=== PATIENT | male | born 1970 | race Caucasian/White ===

== ENCOUNTER 2018-03-29 11:39 | Emergency (ER) | payer OTHER ==
--- NOTE | 2018-03-29 11:47 | EDPHY ---
H & P Stated Complaint: 3 weeks palpitations/chest pressure/sob Time Seen by Provider: 03/29/18 11:45 - Personal History Current Tetanus Diphtheria and Acellular Pertussis (TDAP): Unsure - Medical/Surgical History Hx Asthma: No Hx Chronic Respiratory Disease: No Hx Diabetes: No Hx Cardiac Disease: No Hx Renal Disease: No Hx Cirrhosis: No Hx Alcoholism: No Hx HIV/AIDS: No Hx Splenectomy or Spleen Trauma: No Other PMH: denies - Social History Smoking Status: Former smoker Constitutional: Initial Vital Signs Temperature (C) 36.7 C 03/29/18 11:40 Heart Rate 78 03/29/18 11:40 Respiratory Rate 18 03/29/18 11:40 Blood Pressure 121/79 H 03/29/18 11:40 O2 Sat (%) 94 03/29/18 11:40 O2 Delivery Mode Room Air Allergies/Adverse Reactions: No Known Allergies Allergy (Unverified 03/29/18 11:40) Home Medications: Medication Instructions Recorded Albuterol [Proventil Inhaler] 1 - 2 puffs IH Q4 #1 mdi 03/29/18 methylPREDNISolone [Medrol Dose 1 each PO AD #1 ea 03/29/18 Chris] Medical Decision Making - Diagnostics Imaging Results: Imaging Impressions Chest X-Ray 03/29/18 12:00 Impression: Normal. Imaging: I viewed and interpreted images myself ED Course/Re-evaluation: CHIEF COMPLAINT: Heart palpitations, chest pressure, shortness of breath HISTORY OF PRESENT ILLNESS: The patient is a 47 y/o male complaining of worsening, intermittent heart palpitations, chest pressure, and shortness of breath for the past 9 months. Several months into developing the pain he stopped smoking and noticed that the symptoms worsened. He tends to have a shortness of breath episode every 2 weeks , which is exacerbate while exerting himself. Last , 4 days ago, he arrived in [place] from [place]. However, the symptoms only mildly worsened since arriving. He is currently feeling short of breath and believes his heart is pounding and has an irregular beat. The chest pressure and shortness of breath do not always happen at the same time. Denies history of cardiac or pulmonary tests. Denies recent long distance travel abroad. Denies nausea, vomiting, jaw pain, arm pain, abdominal pain, urinary or bowel complaints, fever , numbness, paresthesias. REVIEW OF SYSTEMS: A 10 point review of systems was performed and is negative with the exception of the elements mentioned in the history of present illness. PHYSICAL EXAM: HR, BP, O2 Sat, RR. Temp noted General Appearance: Alert, well hydrated, appropriate, and non-toxic appearing. Head: Atraumatic without scalp tenderness or obvious injury Eyes: Pupils equal, round, reactive to light and accommodation, EOMI, no trauma , no injection. Ears: Clear bilaterally, no perforation, normal landmarks Nose: Atraumatic, no rhinorrhea, clear. Throat: There is no erythema or exudates, no lesions, normal tonsils, mucus membranes moist. Neck: Supple, nontender, no lymphadenopathy. Respiratory: No retractions, no distress, no wheezes, and no accessory muscle use. Lungs are clear to auscultation bilaterally. Cardiovascular: Regular rate and rhythm, no murmurs, rubs, or gallops. Bilateral carotid, radial, dorsalis pedis, and posterior tibial pulses intact. Good capillary refill all extremities. Gastrointestinal: Abdomen is soft, nontender, non-distended, no masses, no rebound, no guarding, no peritoneal signs. Musculoskeletal: Normal active ROM of all extremities, atraumatic. Neurological: Alert, appropriate, and interactive. Non-focal neuro. Skin: No rashes, good turgor, no nodules on palpation. Past medical history: Denies Past surgical history: Denies Family history: Denies Social history: Friend at bedside, lives in [place], employed, recently stopped smoking DIAGNOSTICS/PROCEDURES/CRITICAL CARE TIME: EKG: The 12 lead EKG was interpreted by myself as sinus rhythm with rate of 67. Potential ST depression in inferior lateral leads. See hard copy and/or "tracemaster" electronic copy for interpretation. Chest x-ray: Normal Cardia Stress Test: Normal DIFFERENTIAL DIAGNOSIS: The differential diagnosis for the patient's chest pain included but was not limited to bronchospasms, bronchitis, pneumonia, myocardial ischemia, pulmonary embolus, chest wall pain, pleural inflammation, and pulmonary infectious causes. MEDICAL DECISION MAKING: The patient is a 47 y/o male complaining of worsening, intermittent heart palpitations, chest pressure, and shortness of breath for the past 9 months. Over the last several days these symptoms have worsened. His physical exam, including cardiac and lungs, is normal. Labs, EKG, and chest x-ray ordered; 324mg PO Aspirin and DuoNeb administered. 1147: I interpreted EKG as sinus rhythm with rate of 67; there is a potential ST depression. 1242: Patient's chest x-ray is normal and his labs are unremarkable. 1243: Reassessed patient and discussed laboratory and imaging findings. He is feeling mildly better after the DuoNeb, but is coughing up black/yellow sputum. I will call cardiology to try and have the patient scheduled for a cardiac stress test. 1252: Consulted with Dr. Prabhakar's bookmobile librarian PA; patient will have a treadmill cardiac stress test in the emergency department. 1254: Reassessed patient and discussed cardiac stress test, he is comfortable with this plan. 1417: Consulted with [facility], who reports the patient went 8 minutes on the treadmill per the Gen protocol without complications. 1418: Reassessed patient and discussed cardiac stress test findings. I have prescribed him a Medrol Dose Chris and an albuterol inhaler for his bronchospasms. I have also advised him to follow up with his PCP when he returns home to [place]. Return precautions provided; patient is comfortable with this plan. - Data Points Laboratory Results: Laboratory Results 03/29/18 11:50 03/29/18 11:50 03/29/18 03/29/18 03/29/18 12:37 12:06 11:50 WBC RBC Hgb Hct MCV MCH MCHC RDW Plt Count MPV Neut % (Auto) Lymph % (Auto) [place] % (Auto) Eos % (Auto) Baso % (Auto) Nucleat RBC Rel Count Absolute Neuts (auto) Absolute Lymphs (auto) Absolute Monos (auto) Absolute Eos (auto) Absolute Basos (auto) Absolute Nucleated RBC Immature Gran % Immature Gran # D-Dimer < 0.27 ug/mLFEU ug/mLFEU (0.00-0.50) Sodium Potassium Chloride Carbon Dioxide Anion Gap BUN Creatinine Estimated GFR Glucose Calcium Magnesium POC Troponin I 0.00 ng/mL ng/mL 0.00 ng/mL ng/mL (0.00-0.08) (0.00-0.08) NT-Pro-B Natriuret Pep 03/29/18 03/29/18 11:50 11:50 WBC 5.59 10^3/uL 10^3/uL (3.80-9.50) RBC 5.16 10^6/uL 10^6/uL (4.40-6.38) Hgb 15.0 g/dL g/dL (13.7-17.5) Hct 43.6 % % (40.0-51.0) MCV 84.5 fL fL (81.5-99.8) MCH 29.1 pg pg (27.9-34.1) MCHC 34.4 g/dL g/dL (32.4-36.7) RDW 11.9 % % (11.5-15.2) Plt Count 262 10^3/uL 10^3/uL (150-400) MPV 8.4 fL L fL (8.7-11.7) Neut % (Auto) 57.0 % % (39.3-74.2) Lymph % (Auto) 32.2 % % (15.0-45.0) [place] % (Auto) 8.9 % % (4.5-13.0) Eos % (Auto) 1.3 % % (0.6-7.6) Baso % (Auto) 0.2 % L % (0.3-1.7) Nucleat RBC Rel Count 0.0 % % (0.0-0.2) Absolute Neuts (auto) 3.19 10^3/uL 10^3/uL (1.70-6.50) Absolute Lymphs (auto) 1.80 10^3/uL 10^3/uL (1.00-3.00) Absolute Monos (auto) 0.50 10^3/uL 10^3/uL (0.30-0.80) Absolute Eos (auto) 0.07 10^3/uL 10^3/uL (0.03-0.40) Absolute Basos (auto) 0.01 10^3/uL L 10^3/uL (0.02-0.10) Absolute Nucleated RBC 0.00 10^3/uL 10^3/uL (0-0.01) Immature Gran % 0.4 % % (0.0-1.1) Immature Gran # 0.02 10^3/uL 10^3/uL (0.00-0.10) D-Dimer Sodium 141 mEq/L mEq/L (135-145) Potassium 4.7 mEq/L mEq/L (3.3-5.0) Chloride 108 mEq/L mEq/L (97-110) Carbon Dioxide 21 mEq/l L mEq/l (22-31) Anion Gap 12 mEq/L mEq/L (8-16) BUN 15 mg/dL mg/dL (7-23) Creatinine 0.9 mg/dL mg/dL (0.7-1.3) Estimated GFR > 60 Glucose 104 mg/dL H mg/dL (70-100) Calcium 9.6 mg/dL mg/dL (8.5-10.4) Magnesium 1.9 mg/dL mg/dL (1.6-2.3) POC Troponin I NT-Pro-B Natriuret Pep 26 pg/mL pg/mL (0-125) Medications Given: Discontinued Medications Albuterol/Ipratropium (Duoneb) 3 ml IH EDNOW ONE Stop: 03/29/18 12:18 Last Admin: 03/29/18 12:25 Dose: 3 ml Aspirin (Aspirin) 324 mg PO EDNOW ONE Stop: 03/29/18 12:00 Last Admin: 03/29/18 12:02 Dose: 324 mg Point of Care Test Results: Chemistry 03/29/18 03/29/18 12:37 12:06 POC Troponin I 0.00 ng/mL ng/mL 0.00 ng/mL ng/mL (0.00-0.08) (0.00-0.08) Departure - Departure Disposition: Home, Routine, Self-Care Clinical Impression: Shortness of breath, Acute bronchospasm Chest pain Qualifiers: Chest pain type: other chest pain Qualified Code(s): R07.89 - Other chest pain Condition: Good Instructions: Chest Pain (ED), Bronchospasm (ED), Shortness of Breath (ED) Additional Instructions: 1. Take the Medrol Dose Chris as prescribed. 2. Use the Albuterol inhaler as prescribed. 3. Follow up with your PCP when you return home to [place]. 4. Return to the Emergency Department for fever, chest pain, shortness of breath , increasing pain or other worsening of condition. Referrals: Robbie Prabhakar MD [Medical Doctor] - As per Instructions Prescriptions: Albuterol [Proventil Inhaler] 1 - 2 puffs IH Q4 #1 mdi methylPREDNISolone [Medrol Dose Chris] 1 each PO AD #1 ea Report Scribed for: Daniel Valdez Report Scribed by: Marylin Bazan Date of Report: 03/29/18 Time of Report: 11:47
--- NOTE | 2018-03-29 11:50 | CPEKG ---
Heart Rate: 67 RR Interval: 896 P-R Interval: 136 QRSD Interval: 84 QT Interval: 384 QTC Interval: 406 P [place]: 70 QRS [place]: 43 T Wave [place]: 37 EKG Severity - NORMAL ECG - EKG Impression: SINUS RHYTHM Electronically Signed By: Daniel Valdez 29-Mar-2018 13:15:52
[2018-03-29] MEDS ORDERED: ASPIRIN 81 MG CHEWABLE TAB PO ONE (11:59)
[2018-03-29 12:12] LABS: PLATELET COUNT 262 10^3/uL (150-400)
[2018-03-29] MEDS ORDERED: IPRATROPIUM/ALBUTEROL 3 ML DEYVIAL IH ONE (12:17)
[2018-03-29 14:36] VITALS: BP 122/92
--- NOTE | 2018-03-29 15:21 | CPR ---
[f rep st] NONINVASIVE CARDIAC PROCEDURE REPORT DATE OF PROCEDURE: 03/29/2018 PROCEDURE: Exercise treadmill test. INDICATION: The patient is a 47-year-old male, who presented to the hospital complaining of a few m onths of chest pressure and shortness of breath. His symptoms can occur at rest or with exertion. He had a few hours of chest discomfort prior to his admission with negative troponins x2. His risk facto rs for coronary artery disease include prior tobacco use. He quit 9 months ago. He denies any history of hypertension, diabetes, or family history of premature coronary artery disease. He may have hyper cholesterolemia. PROCEDURE IN DETAIL: Consent was obtained. The patient was placed on continuous telemetry. His resti ng EKG revealed normal sinus rhythm without any ST-T wave changes to suggest ischemia. The patient wa lked on the treadmill for 7 minutes and 45 seconds. The exercise portion of the study was discontinue d secondary to maximal effort. I denied any chest discomfort while exerting himself. He remained in n ormal sinus rhythm with 0.[address] depression. There were no diagnostic ST-T wave changes . His blood pressure at rest was 112/70 and increased to 200/78. His blood pressure was slow to recov er and was 150/68 at 6-1/2 minutes into recovery. PLAN: There were no diagnostic ST-T wave changes to suggest ischemia. His [place] treadmill score is 5 .3, indicating low risk study. /[id number]/MODL
== END 2018-03-29 14:35 | disposition home or self-care (01) ==
DX: J98.01 Acute bronchospasm (principal); Z87.891 Personal history of nicotine dependence
CPT/HCPCS: 84484-PO